=== PATIENT | male | born 1995 | race Caucasian/White ===

== ENCOUNTER 2020-02-25 04:03 | Emergency (ER) | payer BC ==
[2020-02-25] MEDS ORDERED: Diazepam 5 MG TAB ONE (04:15)
[2020-02-25] MEDS ORDERED: Diazepam 10 MG/2 ML SYRINGE ONE (05:29)
== END 2020-02-25 06:12 | disposition home or self-care (01) ==
LOC: ERS 04:03
DX: F41.9 Anxiety disorder, unspecified (principal); I10 Essential (primary) hypertension; F90.9 Attention-deficit hyperactivity disorder, unspecified type; Z79.899 Other long term (current) drug therapy
CPT/HCPCS: 93005; 96374; J3360

== ENCOUNTER 2020-03-12 22:34 | Emergency (ER) | payer BC ==
[2020-03-12] MEDS ORDERED: Midazolam HCl 5 mg/ml Vial ONE (23:20)
[2020-03-13] MEDS ORDERED: Acetaminophen 500 MG TAB ONE (00:37)
== END 2020-03-13 00:48 | disposition home or self-care (01) ==
LOC: ERS 22:34
DX: F41.9 Anxiety disorder, unspecified (principal); R00.0 Tachycardia, unspecified; I10 Essential (primary) hypertension; Z79.899 Other long term (current) drug therapy
CPT/HCPCS: 94760; 96372; J2250